=== PATIENT | female | born 1930 | race African-American/Black ===

== ENCOUNTER 2017-09-16 11:07 | Outpatient (CLI) | payer MEDICARE | END 2017-09-16 11:08 | disposition home or self-care (01) | LOC: BICMAMMO 11:07 | PROVIDERS: ATTEND Internal Medicine | DX: Z12.31 Encounter for screening mammogram for malignant neoplasm of breast (principal) | CPT/HCPCS: 77063; 77067 ==

== ENCOUNTER 2017-12-14 07:47 | Emergency (ER) | payer MEDICARE ==
[2017-12-14] MEDS ORDERED: ISOVUE-370 76%-LOCM 1 ML ONE (08:05)
[2017-12-14] MEDS ORDERED: Iopamidol 370 76% 50 ML VIAL FS ONE (08:05)
[2017-12-14 08:13] LABS: #Lymphocytes 0.7 thou/uL (1.20-3.40); #Monocytes 0.8 thou/uL (0.11-0.59); #Neutrophils 8.7 thou/uL (1.40-6.50); %Eosinophils 0.1 % (0.0-10.0); %Lymphocytes 7.1 % (21.0-51.0); %Monocytes 7.9 % (0.0-10.0); %Neutrophils 84.9 % (42.0-75.0); Mean Corpuscular HGB CONC 31.7 g/dL (32.0-36.0); Mean Corpuscular Hemoglobin 26.6 pg (27.0-31.0); Mean Corpuscular Volume 83.9 fl (81.0-99.0); Mean Platelet Volume 8.6 fL (7.4-10.4); Platelet Count 215 thou/uL (130-400); RBC Distribution Width 14.4 % (11.5-14.5); Red Blood Cell (RBC) Count 5.27 mill/uL (4.20-5.40); White Blood Cell (WBC) Count 10.3 thou/uL (4.8-10.8)
[2017-12-14 08:38] LABS: ALT (SGPT) 14 U/L (8-55); AST (SGOT) 20 U/L (5-34); Albumin 3.7 g/dL (3.4-4.8); Alkaline Phosphatase 110 U/L (40-150); Anion Gap 16 mmol/L (10-20); BUN (Urea Nitrogen) 12 mg/dL (9.8-20.1); Bilirubin, Total 0.6 mg/dL (0.2-1.2); Calc. Creatinine Clearance 0 mL/min (70-130); Calcium 9.1 mg/dL (7.8-10.44); Carbon Dioxide 21 mmol/L (23-31); Chloride 103 mmol/L (98-107); Estimated GFR-MDRD 81; Globulin 3.4 g/dL (2.4-3.5); Glucose 160 mg/dL (83-110); Lipase 19 U/L (8-78); Potassium 3.8 mmol/L (3.5-5.1); Protein, Total 7.1 g/dL (6.0-8.3); Sodium 136 mmol/L (136-145)
[2017-12-14 09:19] LABS: CKMB 1.6 ng/mL (0-6.6)
[2017-12-14 09:25] LABS: Bilirubin Negative (Negative); Blood, Urine Negative (Negative); Clarity CLEAR (Clear); Glucose, Urine (Dipstick) Negative (Negative); Leukocyte Negative (Negative); Nitrite Negative (Negative); Protein, Urine (Dipstick) Trace mg/dL (Neg-Trace); Specific Gravity, Urine 1.015 (1.002-1.036); Urobilinogen 0.2 mg/dL (0.2-1.0); pH, Urine 7.5 (5.0-9.0)
[2017-12-14 09:58] LABS: Troponin I Less than 0.010 ng/mL (< 0.028)
--- NOTE | 2017-12-14 10:09 | RAD ---
SINGLE VIEW CHEST: HISTORY: Abdominal pain radiating to the right side of the ribs and back. Chest pain. COMPARISON: None. FINDINGS: Single view of the chest show normal sized cardiomediastinal silhouette. There is no evidence of cons olidation, mass, or pleural effusion. Degenerative changes are seen in the spine. IMPRESSION: No evidence of acute cardiopulmonary disease. POS: [facility]
[2017-12-14] MEDS ORDERED: Ondansetron ODT 4 MG TAB ONE (11:19)
--- NOTE | 2017-12-14 12:39 | CT ---
CT ABDOMEN AND PELVIS WITH IV CONTRAST: Indication: History of right upper quadrant abdominal pain that woke the patient around 0100 this mor nya. Patient has had similar pain on the left side before. History of cholecystectomy and appendecto my. FINDINGS: There is prominent wall thickening involving the cecum as well as the terminal ileum without evidence of a drainable fluid collection. The appendix is surgically absent. There is stable right renal cyst when compared to a prior dated 07-29-16. There are calcified granuloma involving the liver and splee n as well as the right lung base. There is a small hiatal hernia with reflux contrast. No hydronephro sis is evident. There are phleboliths within the left gonadal vein. There are scattered vascular calc ifications. The uterus is surgically absent. There are scattered degenerative and osteoarthritic hill ge. There is cervical lumbar scoliosis. IMPRESSION: 1. Findings of ileocolitis without evidence of drainable fluid collection. Recommend appropriate colo n screening after abatement of patient's acute symptoms as malignancy cannot be entirely excluded. 2. Findings may be infectious or inflammatory in etiology. 3. Colonic diverticulosis. 4. Stable right renal cyst. 5. Findings of prior granulomatous disease. POS: [facility]
[2017-12-14] MEDS ORDERED: Acetaminophen/Codeine 30-300mg Tablet ONE (13:04)
== END 2017-12-14 13:15 | disposition home or self-care (01) ==
LOC: ERS 07:47
DX: K52.9 Noninfective gastroenteritis and colitis, unspecified (principal); I10 Essential (primary) hypertension; R73.03 Prediabetes; M10.9 Gout, unspecified; Z79.891 Long term (current) use of opiate analgesic; Z79.899 Other long term (current) drug therapy
CPT/HCPCS: 36415; 71045; 74177; 80053; 81003; 82553; 83690; 83880; 84484; 85025; 93005; Q0162

== ENCOUNTER 2018-11-01 13:55 | Outpatient (CLI) | payer MEDICARE | END 2018-11-01 13:56 | disposition home or self-care (01) | LOC: BICMAMMO 13:55 | PROVIDERS: ATTEND Internal Medicine | DX: Z12.31 Encounter for screening mammogram for malignant neoplasm of breast (principal); R92.1 Mammographic calcification found on diagnostic imaging of breast; Z80.3 Family history of malignant neoplasm of breast | CPT/HCPCS: 77063; 77067 ==